=== PATIENT | male | born 1960 | race Hispanic/Latino ===

== ENCOUNTER 2018-09-25 22:29 | Emergency (ER) | payer MEDICAID ==
[2018-09-25 23:37] LABS: BASOPHILS % (AUTO) 4.9 % (0.0-5.0); EOSINOPHILS % (AUTO) 6.6 % (0.0-8.0); HEMATOCRIT 43.3 % (42-54); LYMPHOCYTES % (AUTO) 32.5 % (21.0-51.0); MEAN CORPUSCULAR HEMOGLOBIN 29.5 pg (27.0-33.0); MEAN CORPUSCULAR HGB CONC 34.2 g/dL (32.0-36.0); MEAN CORPUSCULAR VOLUME 86.3 fL (79-99); MONOCYTES % (AUTO) 8.1 % (3.0-13.0); NEUTROPHILS % (AUTO) 47.9 % (40.0-77.0); NUCLEATED RED BLOOD CELLS 0.1 % (0.0-0.19); PLATELET COUNT (AUTO) 169 K/uL (130-400); RED BLOOD CELL COUNT(AUTO) 5.01 MIL/uL (4.50-6.20); RED CELL DISTRIBUTION WIDTH 14.7 % (11.0-15.5); WHITE BLOOD COUNT (AUTO) 5.8 K/uL (4.8-10.8)
[2018-09-25 23:45] LABS: CREATININE 0.8 mg/dL (0.5-1.5); POTASSIUM 3.3 mmol/L (3.5-5.1)
[2018-09-25 23:49] LABS: ALBUMIN 3.7 g/dL (3.5-5.0); BILIRUBIN,TOTAL 0.5 mg/dL (0.2-1.0); TOTAL PROTEIN, SERUM 7.2 g/dL (6.0-8.3)
[2018-09-25 23:53] LABS: INR 1.01 (0.85-1.15); PARTIAL THROMBOPLASTIN TIME 30.7 SEC (26.3-35.5); PROTHROMBIN TIME 10.6 SEC (9.6-11.6)
== END 2018-09-26 00:59 | disposition home or self-care (01) ==
LOC: EDH 22:29
DX: R06.00 Dyspnea, unspecified (principal); G80.9 Cerebral palsy, unspecified; Z88.0 Allergy status to penicillin; Z88.6 Allergy status to analgesic agent; Z88.8 Allergy status to other drugs, medicaments and biological substances; Z90.49 Acquired absence of other specified parts of digestive tract; Z98.890 Other specified postprocedural states
CPT/HCPCS: 36415; 71045; 80053; 83690; 84484; 85025; 85610; 85730; 93005

== ENCOUNTER 2018-12-07 18:44 | Emergency (ER) | payer MEDICAID ==
[2018-12-07] MEDS ORDERED: PREDNISONE 20 MG TABLET ONE (19:17)
[2018-12-07] MEDS ORDERED: IPRATROPIUM/ALBUTEROL SULFATE 3 ML SOLUTION IH ONE (20:13)
[2018-12-07] MEDS ORDERED: ALBUTEROL SULFATE 0.083% 2.5 MG/3 ML INH IH ONE (20:30)
== END 2018-12-07 21:30 | disposition home or self-care (01) ==
LOC: EDH 18:44
DX: J45.901 Unspecified asthma with (acute) exacerbation (principal); Z88.6 Allergy status to analgesic agent; Z88.0 Allergy status to penicillin; Z90.49 Acquired absence of other specified parts of digestive tract; Z98.890 Other specified postprocedural states
CPT/HCPCS: 71045; 93005; 94640

== ENCOUNTER 2019-02-17 20:20 | Emergency (ER) | payer MEDICAID ==
[2019-02-17] MEDS ORDERED: HYDROCODONE/ACETAMINOPHEN 5/325 MG TAB ONE (21:19)
== END 2019-02-17 21:44 | disposition home or self-care (01) ==
LOC: EDH 20:20
DX: S83.91XA Sprain of unspecified site of right knee, initial encounter (principal); M25.461 Effusion, right knee; J45.909 Unspecified asthma, uncomplicated; I10 Essential (primary) hypertension; M19.90 Unspecified osteoarthritis, unspecified site; Z88.6 Allergy status to analgesic agent; Z88.0 Allergy status to penicillin; W20.0XXA Struck by falling object in cave-in, initial encounter; Y93.89 Activity, other specified; Y92.89 Other specified places as the place of occurrence of the external cause; Y99.8 Other external cause status
CPT/HCPCS: 73562

== ENCOUNTER 2019-03-18 20:52 | Emergency (ER) | payer MEDICAID ==
[2019-03-18 21:11] LABS: BASOPHILS % (AUTO) 0.3 % (0.0-5.0); EOSINOPHILS % (AUTO) 8.9 % (0.0-8.0); LYMPHOCYTES % (AUTO) 33.3 % (21.0-51.0); MEAN CORPUSCULAR HEMOGLOBIN 30.2 pg (27.0-33.0); MEAN CORPUSCULAR HGB CONC 34.6 g/dL (32.0-36.0); MEAN CORPUSCULAR VOLUME 87.2 fL (79-99); MONOCYTES % (AUTO) 6.8 % (3.0-13.0); NEUTROPHILS % (AUTO) 50.7 % (40.0-77.0); NUCLEATED RED BLOOD CELLS 0.2 % (0.0-0.19); PLATELET COUNT (AUTO) 167 K/uL (130-400); RED BLOOD CELL COUNT(AUTO) 4.82 MIL/uL (4.50-6.20); RED CELL DISTRIBUTION WIDTH 14.5 % (11.0-15.5); WHITE BLOOD COUNT (AUTO) 4.7 K/uL (4.8-10.8)
[2019-03-18] MEDS ORDERED: ASPIRIN 325 MG TABLET ONE (21:17)
[2019-03-18 21:20] LABS: POTASSIUM 3.4 mmol/L (3.5-5.1)
[2019-03-18 21:21] LABS: INR 1.06 (0.85-1.15); PARTIAL THROMBOPLASTIN TIME 33.1 SEC (26.3-35.5); PROTHROMBIN TIME 11.1 SEC (9.6-11.6)
[2019-03-18 21:32] LABS: ALBUMIN 3.7 g/dL (3.5-5.0); BILIRUBIN,TOTAL 0.3 mg/dL (0.2-1.0); TOTAL PROTEIN, SERUM 7.3 g/dL (6.0-8.3)
[2019-03-18] MEDS ORDERED: IOHEXOL 350 MG/ML 100ML INFUS..BTL IV ONE (23:11)
== END 2019-03-19 01:06 | disposition home or self-care (01) ==
LOC: EDH 20:52
DX: G80.9 Cerebral palsy, unspecified (principal); R07.89 Other chest pain; I10 Essential (primary) hypertension; J45.909 Unspecified asthma, uncomplicated; M19.90 Unspecified osteoarthritis, unspecified site; G89.29 Other chronic pain; Z90.49 Acquired absence of other specified parts of digestive tract; Z88.5 Allergy status to narcotic agent; Z88.2 Allergy status to sulfonamides; Z88.1 Allergy status to other antibiotic agents
CPT/HCPCS: 36415; 71045; 71275; 80053; 82550; 83874; 84484 ×2; 85025; 85610; 85730; 93005 ×2; 99285; Q9967

== ENCOUNTER 2019-05-10 14:53 | Emergency (ER) | payer MEDICAID ==
[2019-05-10 15:42] LABS: BASOPHILS % (AUTO) 0.6 % (0.0-5.0); EOSINOPHILS % (AUTO) 0.3 % (0.0-8.0); HEMATOCRIT 41.5 % (42-54); LYMPHOCYTES % (AUTO) 8.6 % (21.0-51.0); MEAN CORPUSCULAR HEMOGLOBIN 29.3 pg (27.0-33.0); MEAN CORPUSCULAR HGB CONC 33.3 g/dL (32.0-36.0); MEAN CORPUSCULAR VOLUME 87.9 fL (79-99); MONOCYTES % (AUTO) 3.7 % (3.0-13.0); NEUTROPHILS % (AUTO) 86.8 % (40.0-77.0); PLATELET COUNT (AUTO) 171 K/uL (130-400); RED BLOOD CELL COUNT(AUTO) 4.72 MIL/uL (4.50-6.20); WHITE BLOOD COUNT (AUTO) 5.7 K/uL (4.8-10.8)
[2019-05-10 15:59] LABS: CREATININE 0.8 mg/dL (0.5-1.5); POTASSIUM 3.9 mmol/L (3.5-5.1)
[2019-05-10 16:03] LABS: ALBUMIN 3.5 g/dL (3.5-5.0); BILIRUBIN,TOTAL 0.6 mg/dL (0.2-1.0); TOTAL PROTEIN, SERUM 6.8 g/dL (6.0-8.3)
[2019-05-10] MEDS ORDERED: SODIUM CHLORIDE 0.9% 1000ML 1,000 ML IV ONE (17:21)
[2019-05-10] MEDS ORDERED: ONDANSETRON HCL 4 MG/2 ML VIAL ONE (17:21)
== END 2019-05-10 18:51 | disposition home or self-care (01) ==
LOC: EDH 14:53
DX: K52.9 Noninfective gastroenteritis and colitis, unspecified (principal); G80.9 Cerebral palsy, unspecified; J45.909 Unspecified asthma, uncomplicated; I10 Essential (primary) hypertension; Z88.0 Allergy status to penicillin; Z88.5 Allergy status to narcotic agent; Z88.8 Allergy status to other drugs, medicaments and biological substances
CPT/HCPCS: 36415; 80053; 82150; 83690; 85025; 96361; 96374; 99284; J2405; J7030

== ENCOUNTER → 2019-06-08 | Outpatient (CLI) | payer MEDICAID | END | disposition home or self-care (01) | LOC: RAH 07:23 | PROVIDERS: ATTEND Internal Medicine Gastroenterology | DX: K21.9 Gastro-esophageal reflux disease without esophagitis (principal); K44.9 Diaphragmatic hernia without obstruction or gangrene; N28.1 Cyst of kidney, acquired; Z90.49 Acquired absence of other specified parts of digestive tract | CPT/HCPCS: 74240; 76700 ==

== ENCOUNTER 2019-12-05 18:53 | Emergency (ER) | payer MEDICAID ==
[2019-12-05] MEDS ORDERED: IBUPROFEN 600 MG TABLET ONE (20:46)
== END 2019-12-05 20:54 | disposition home or self-care (01) ==
LOC: EDH 18:53
DX: M25.561 Pain in right knee (principal); R07.9 Chest pain, unspecified; J45.909 Unspecified asthma, uncomplicated; I10 Essential (primary) hypertension; Z88.0 Allergy status to penicillin; Z88.5 Allergy status to narcotic agent; Z88.8 Allergy status to other drugs, medicaments and biological substances
CPT/HCPCS: 71046; 73562; 93005

== ENCOUNTER 2020-05-31 18:24 | Emergency (ER) | payer MEDICAID ==
[2020-05-31 20:41] LABS: BASOPHILS % (AUTO) 0.7 % (0.0-5.0); EOSINOPHILS % (AUTO) 4.4 % (0.0-8.0); HEMATOCRIT 49.8 % (42-54); LYMPHOCYTES % (AUTO) 38.1 % (21.0-51.0); MEAN CORPUSCULAR HEMOGLOBIN 28.6 pg (27.0-33.0); MEAN CORPUSCULAR HGB CONC 32.9 g/dL (32.0-36.0); MEAN CORPUSCULAR VOLUME 86.8 fL (79-99); MONOCYTES % (AUTO) 6.9 % (3.0-13.0); NEUTROPHILS % (AUTO) 49.7 % (40.0-77.0); PLATELET COUNT (AUTO) 257 K/uL (130-400); RED BLOOD CELL COUNT(AUTO) 5.74 MIL/uL (4.50-6.20); RED CELL DISTRIBUTION WIDTH 13.5 % (11.0-15.5); WHITE BLOOD COUNT (AUTO) 4.5 K/uL (4.8-10.8)
[2020-05-31 20:55] LABS: CARBON DIOXIDE 31 mmol/L (21-32); CHLORIDE 103 mmol/L (101-111); CREATININE 0.9 mg/dL (0.5-1.5); GLOMERULAR FILTR. RATE CALC 91 mL/min (>60); GLUCOSE,RANDOM 89 mg/dL (70-105); POTASSIUM 3.4 mmol/L (3.5-5.1); SODIUM SERUM 142 mmol/L (136-145); UREA NITROGEN, BLOOD 20 mg/dL (7-18)
[2020-05-31 20:58] LABS: INR 0.98 (0.85-1.15); PARTIAL THROMBOPLASTIN TIME 30.6 SEC (26.3-35.5); PROTHROMBIN TIME 10.6 SEC (9.6-11.6)
[2020-05-31 21:06] LABS: ALANINE AMINOTRANSFERASE 39 U/L (12-78); ALBUMIN 4.5 g/dL (3.5-5.0); ASPARTATE AMINOTRANSFERASE 26 U/L (10-37); BILIRUBIN,TOTAL 0.5 mg/dL (0.2-1.0); CREATINE KINASE, TOTAL 121 U/L (21-232); MYOGLOBIN 54 ng/mL (10-92); TOTAL PROTEIN, SERUM 9.2 g/dL (6.0-8.3); TROPONIN I < 0.04 ng/mL (0.00-0.06)
== END 2020-05-31 21:59 | disposition home or self-care (01) ==
LOC: EDH 18:24
DX: U07.1 COVID-19 (principal); G80.9 Cerebral palsy, unspecified; R05 Cough; J45.909 Unspecified asthma, uncomplicated; G89.29 Other chronic pain; M19.90 Unspecified osteoarthritis, unspecified site; I10 Essential (primary) hypertension; Z88.0 Allergy status to penicillin; Z88.5 Allergy status to narcotic agent; Z88.3 Allergy status to other anti-infective agents
CPT/HCPCS: 36415; 71045; 80053; 82550; 83605; 83874; 84145; 84484; 85025; 85610; 85730; 86900; 86901; 87040 ×2; 87804 ×2; 99284; U0003; 93005

== ENCOUNTER 2020-08-20 09:58 | Emergency (ER) | payer MEDICAID | END 2020-08-20 10:31 | disposition home or self-care (01) | LOC: EDH 09:58 | DX: Z20.828 Contact with and (suspected) exposure to other viral communicable diseases (principal); J45.909 Unspecified asthma, uncomplicated; I10 Essential (primary) hypertension; M19.90 Unspecified osteoarthritis, unspecified site; G89.29 Other chronic pain; Z88.0 Allergy status to penicillin; Z88.6 Allergy status to analgesic agent; Z88.8 Allergy status to other drugs, medicaments and biological substances; Z90.49 Acquired absence of other specified parts of digestive tract | CPT/HCPCS: 99283; U0003 ==

== ENCOUNTER 2020-12-15 21:04 | Emergency (ER) | payer MEDICAID | END 2020-12-15 21:58 | disposition home or self-care (01) | LOC: EDH 21:04 → EEVIPCON 21:04 → EDH 21:58 | DX: H00.012 Hordeolum externum right lower eyelid (principal); H01.002 Unspecified blepharitis right lower eyelid; J45.909 Unspecified asthma, uncomplicated; M19.90 Unspecified osteoarthritis, unspecified site; I10 Essential (primary) hypertension; Z88.6 Allergy status to analgesic agent; Z88.0 Allergy status to penicillin; Z98.890 Other specified postprocedural states ==

== ENCOUNTER 2024-05-10 19:09 | Emergency (ER) | payer BC, MEDICAID ==
[~2024-05-10] VITALS: Ht 167.6 cm; Wt 65.8 kg
[2024-05-10] MEDS: CYCLOBENZAPRINE HCL 10 MG TABLET PO ONE (19:34)
[2024-05-10] MEDS: KETOROLAC 30MG VIAL (30MG/ML) IVP ONE (19:34)
[2024-05-10] MEDS ORDERED: METH4TAB3 PO (20:43)
[2024-05-10 20:50] VITALS: BP 116/72; PULSE 74; RESP 20; O2SAT 98
== END 2024-05-10 20:52 | disposition home or self-care (01) ==
LOC: EDH 19:09
DX: M54.50 Low back pain, unspecified (principal); M47.816 Spondylosis without myelopathy or radiculopathy, lumbar region; K21.9 Gastro-esophageal reflux disease without esophagitis; Z88.0 Allergy status to penicillin; Z88.5 Allergy status to narcotic agent; Z90.49 Acquired absence of other specified parts of digestive tract
CPT/HCPCS: 99283; 96374; 72100; J1885

== ENCOUNTER 2024-06-01 19:59 | Emergency (ER) | payer BC, MEDICAID ==
[~2024-06-01] VITALS: Ht 167.6 cm; Wt 65.8 kg
[~2024-06-01 19:59] MED LIST: METH4TAB3 PO
[2024-06-01 20:48] VITALS: BP 104/61; PULSE 63; RESP 16; O2SAT 99
[2024-06-01 21:03] LABS: BASOPHILS # (AUTO) 0.04 K/uL (0.00-0.20); BASOPHILS % (AUTO) 0.7 % (0.0-5.0); EOSINOPHILS # (AUTO) 0.08 K/uL (0.00-0.70); EOSINOPHILS % (AUTO) 1.5 % (0.0-8.0); HEMATOCRIT 41.7 % (42-54); IMMATURE GRANULOCYTE ABSOLUTE 0.03 K/uL (0-1); LYMPHOCYTES # (AUTO) 1.5 K/uL (1.0-4.8); LYMPHOCYTES % (AUTO) 27.8 % (21.0-51.0); MEAN CORPUSCULAR HEMOGLOBIN 29.2 pg (27.0-33.0); MEAN CORPUSCULAR HGB CONC 32.9 g/dL (32.0-36.0); MEAN CORPUSCULAR VOLUME 88.9 fL (79-99); MONOCYTES # (AUTO) 0.5 K/uL (0.1-1.0); NEUTROPHILS # (AUTO) 3.2 K/uL (1.8-7.7); NEUTROPHILS % (AUTO) 60.4 % (40.0-77.0); PLATELET COUNT (AUTO) 215 K/uL (130-400); RED BLOOD CELL COUNT(AUTO) 4.69 MIL/uL (4.50-6.20); RED CELL DISTRIBUTION WIDTH 14.2 % (11.0-15.5); WHITE BLOOD COUNT (AUTO) 5.4 K/uL (4.8-10.8)
[2024-06-01 21:10] LABS: CREATININE 0.7 mg/dL (0.5-1.3); POTASSIUM 3.4 mmol/L (3.5-5.1)
[2024-06-01 21:39] LABS: APPEARANCE,URINE CLEAR (CLEAR); BILIRUBIN,URINE NEGATIVE (NEGATIVE); COLOR,URINE YELLOW (YELLOW); GLUCOSE, URINE (UA) 500 mg/dL (NEGATIVE); KETONES,URINE NEGATIVE (NEGATIVE); LEUKOCYTE ESTERASE ,URINE NEGATIVE Leu/uL (NEGATIVE); NITRATE,URINE NEGATIVE (NEGATIVE); OCCULT BLOOD,URINE LARGE (NEGATIVE); PROTEIN,URINE 100 mg/dL (NEGATIVE)
[2024-06-01 21:40] LABS: ADD UA MICROSCOPIC YES
[2024-06-01 21:45] LABS: BACTERIA,URINE RARE /HPF (None Seen); MUCUS,URINE FEW LPF (None Seen)
[2024-06-01] MEDS ORDERED: NAPR-1192 PO (22:20)
[2024-06-01] MEDS: KETOROLAC 30MG VIAL (30MG/ML) IVP ONE (22:31)
== END 2024-06-01 22:43 | disposition home or self-care (01) ==
LOC: EDH 19:59
DX: N28.1 Cyst of kidney, acquired (principal); G89.29 Other chronic pain; M54.50 Low back pain, unspecified; K21.9 Gastro-esophageal reflux disease without esophagitis; Z88.0 Allergy status to penicillin; Z88.5 Allergy status to narcotic agent; Z90.49 Acquired absence of other specified parts of digestive tract
CPT/HCPCS: 99284; 74176; 96374; 84484; 80048; 83690; 85025; 81001; 36415; 93005; J1885

== ENCOUNTER → 2025-06-30 | Outpatient (CLI) | payer OTHER, MEDICAID ==
[~2025-06-30] MED LIST changes: +IOHEXOL 350 MG/ML 100ML INFUS..BTL IV ONE; +NAPR-1192 PO
--- NOTE | 2025-07-01 10:02 | HMCIMG ---
EXAMINATION: CT SCAN OF THE ABDOMEN AND PELVIS WITHOUT AND WITH CONTRAST CLINICAL HISTORY: Cyst of the kidney, acquired. COMPARISON: CT abdomen and pelvis on 06/01/2024. TECHNIQUE: Thin collimated axial CT images of the abdomen and pelvis were obtained before and after contrast administration of IV contrast. Sagittal and coronal reconstructed images were also submitted. The total dose length product has been recorded in the electronic medical record. FINDINGS: The included chest is normal. Liver is normal in caliber with uniform normal density. Gallbladder is surgically absent. There is a stable, left renal upper pole, cortical cyst with peripheral rim calcification and measuring 2.6 x 2.4 x 2.5 cm in craniocaudal, AP, and transverse dimensions respectively. There are stable bilateral renal cortical cysts, largest measuring 2.5 x 2.2 x 2.3 cm on the right and 1 x 1 x 1 cm on the left. No urinary calculi. No hydronephrosis. Spleen, pancreas, and adrenal glands are normal in caliber. The included gastrointestinal tract is normal in caliber without any bowel wall thickening, ileus, or obstruction. The urinary bladder is distended with normal wall thickness. No intravesical mass. The prostate is mildly enlarged in caliber. Both the seminal vesicles are normal in caliber. There is no ascites. No lymphadenopathy. The aorta and its branches are normal in caliber without any stenosis or aneurysm. There are multilevel moderate degenerative changes of the spine. IMPRESSION: No urinary calculi. No hydronephrosis. Stable, left renal upper pole, cortical cyst with peripheral rim calcification ??? Bosniak, type IIF. Stable bilateral renal cortical cysts.. Mild prostatomegaly. /[place]
== END | disposition home or self-care (01) ==
LOC: RAH 07:56
PROVIDERS: ATTEND Internal Medicine
DX: N28.1 Cyst of kidney, acquired (principal); N40.0 Benign prostatic hyperplasia without lower urinary tract symptoms; M47.817 Spondylosis without myelopathy or radiculopathy, lumbosacral region; Z90.49 Acquired absence of other specified parts of digestive tract
CPT/HCPCS: 74178; Q9967